=== PATIENT | female | born 1985 | race Caucasian/White ===

== ENCOUNTER 2016-10-28 11:10 | Emergency (ER) | payer OTHER ==
[~2016-10-28] VITALS: Ht 161.3 cm; Wt 56.4 kg
[~2016-10-28 11:10] MED LIST: LANS30CA12 PO; LORA10CA2 PO; ONDA8TAB62 SL; POLY335019 PO; RABE20TA5 PO; TRAM-10 PO; TRIA0.5O TOP
[2016-10-28 11:13] VITALS: TEMP 36.6; Ht 161.3 cm; Wt 56.4 kg
[2016-10-28] MEDS ORDERED: CETI10TA84 PO (11:30)
[2016-10-28] MEDS ORDERED: SODIUM CHLORIDE 0.9% 1000ML 1,000 ML IV ONE (11:45)
[2016-10-28 12:14] LABS: BASO % 0.4 %; BASO ABS # 0.03 K/uL (0-0.2); COMPLETE YES; EOS % 0.8 %; HEMATOCRIT 42.2 % (37-47); IG% 0.3 %; LYMPH % 22.5 %; LYMPH ABS # 1.77 K/uL (1.2-3.4); MEAN CELL VOLUME 85.4 fL (80-100); MEAN CORPUSCULAR HEMOGLOBIN 28.9 pg (25-34); MEAN CORPUSCULAR HGB CONC 33.9 g/dl (32-36); MONO % 7.6 %; NEUT % 68.4 %; PLATELET COUNT 293 K/uL (130-400); RED BLOOD COUNT 4.94 M/uL (4.2-5.4); WHITE BLOOD COUNT 7.88 K/uL (4.8-10.8)
[2016-10-28 12:20] LABS: URINE APPEARANCE CLEAR (CLEAR); URINE BILIRUBIN NEG (NEG); URINE COLOR YELLOW; URINE NITRITE NEG (NEG); URINE PH 6.5 (4.5-7.5); URINE SPECIFIC GRAVITY 1.011 (1.000-1.030); UROBILINOGEN NEG (NEG); ZZUR CULT IF INDIC CLEAN CATCH NO
[2016-10-28 12:24] LABS: MANUAL MICROSCOPIC REQUIRED? NO; REVIEW REQ? NO
[2016-10-28 12:31] LABS: CALCIUM 9.5 mg/dl (8.5-10.1); CREATININE 0.93 mg/dl (0.60-1.20); POTASSIUM 3.6 mmol/L (3.5-5.1)
[2016-10-28 12:34] LABS: ALB/GLOB RATIO 1.2 (0.9-2)
--- NOTE | 2016-10-28 13:36 | DIAGNOSTIC IMAGING REPORT ---
ULTRASOUND OF THE APPENDIX CLINICAL HISTORY: Right lower quadrant abdominal pain. COMPARISON STUDY: Abdominal CT dated 12/16/2014. FINDINGS: Real-time, grayscale, and color flow sonography of the right lower quadrant was performed to assess for acute appendicitis. The appendix was not discretely visualized. No inflammatory changes or free fluid are seen in the right lower quadrant. No lymphadenopathy was seen. IMPRESSION: Nonvisualization of the appendix. Note that this does not exclude acute appendicitis. Electronically signed by: Dillan Laurent M.D. 10/28/2016 1:34 PM Dictated Date/Time: 10/28/2016 1:33 PM
--- NOTE | 2016-10-28 13:42 | DIAGNOSTIC IMAGING REPORT ---
ULTRASOUND OF THE PELVIS CLINICAL HISTORY: Right pelvic pain. Reported history of positive test. COMPARISON STUDY: Pelvic CT dated 12/16/2014. TECHNIQUE: Real-time, grayscale, and color flow sonography of the pelvis is performed both transabdominally and endovaginally. Images are reviewed in the transverse and longitudinal planes. FINDINGS: Uterus: The uterus is normal in size and echotexture, measuring 9.2 x 5.1 x 5.6 cm. In the both in cysts is incidentally noted in the cervix. Gestation: A small gestational sac is identified, with a mean gestational sac diameter of 0.80 cm. This is too small for accurate estimation of dates. A yolk sac is identified. A pole is identified with a crown-rump length of 0.25 cm. This corresponds to an estimated age of 5 weeks 6 days. Cardiac activity is identified on the grayscale images. Ovaries: The ovaries are normal in size and morphology. The right ovary measures 3.7 x 1.8 x 2.8 cm and the left ovary measures 2.0 x 1.0 x 1.2 cm. There are bilateral ovarian follicles. Normal Doppler waveforms are shown within both ovaries. Pelvis: There is trace free fluid in the cul-de-sac. No concerning adnexal lesion is seen. IMPRESSION: 1. There is a single live uterine gestation with an estimated age of 5 weeks 6 days by crown-rump length measurement. 2. The ovaries are normal in appearance. 3. There is trace nonspecific free fluid in the cul-de-sac. Electronically signed by: Dillan Laurent M.D. 10/28/2016 1:40 PM Dictated Date/Time: 10/28/2016 1:35 PM
[2016-10-28 15:08] VITALS: BP 116/70; PULSE 98; O2SAT 97
--- NOTE | 2016-10-28 15:17 | EMERGENCY ROOM VISIT NOTE ---
History First contact with patient: 11:30 Chief Complaint: TEST REQUEST Stated Complaint: POSSIBLE ,PAIN History of Present Illness The patient is a 30 year old female who presents to the Emergency Room with complaints of vague lower abdominal and right sided abdominal pain for the past 2-3 days. The patient describes the pain as a cramping sensation. She is nearly 2 weeks past due on her menses, and states that she felt that her symptoms could be related to her menstrual cycle. The patient is sexually active and states that she had a positive home test today. The patient has not had fever or chills. No chest pain or chest tightness. No upper abdominal tenderness. She is without vaginal drainage, discharge, or bleeding. No difficulty using the bathroom. She rates her current discomfort a 2/10. She has not taken anything [id number] for her symptoms. She does not identify aggravating or alleviating factors. Review of Systems More than 10 systems were reviewed and otherwise negative with the exception of history of present illness. Past Medical/Surgical History Medical Problems: (1) Abdominal pain (2) Anxiety State Nos (3) Asthma, Unspecified (4) Epigastric pain (5) Esophageal Reflux (6) Hiatal hernia (7) Hyperbilirubinemia (8) Jaundice (9) Nausea (10) Pelvic pain (11) Total bilirubin, elevated Social History Problems: (1) IUD (intrauterine device) in place Family History FH: HTN (hypertension) FH: cancer FH: heart disease FH: lung disease No significant family history Social History Smoking Status: Former Smoker Alcohol Use: none Drug Use: none Marital Status: in relationship Housing Status: lives with family Occupation Status: employed Current/Historical Medications Scheduled Cetirizine (Zyrtec), 10 MG PO DAILY Lansoprazole (Prevacid), 30 MG PO DAILY Allergies Coded Allergies: Cephalosporins (Verified Allergy, Intermediate, hives, 10/28/16) "childhood" Penicillins (Verified Allergy, Intermediate, HIVES, 10/28/16) Sulfa Antibiotics (Verified Allergy, Mild, "CHILDHOOD", 10/28/16) Shellfish (Verified Allergy, Unknown, unk, 10/28/16) Physical Exam Vital Signs Date Time Temp Pulse Resp B/P (MAP) Pulse Ox O2 Delivery O2 Flow Rate FiO2 10/28/16 13:34 96 18 140/87 99 Room Air 10/28/16 11:13 36.6 102 15 124/80 100 Room Air Physical Exam VITALS: Vitals are noted on the nurse's note and reviewed by myself. Vital signs stable. GENERAL: Well-developed, well-nourished, white female, who is in no acute distress and resting comfortably. Patient is cooperative with the examination. HEAD: Normocephalic atraumatic. HEART: Regular rate and rhythm without murmurs gallops or rubs. LUNGS: Clear to auscultation bilaterally without wheezes, rales or rhonchi. No retractions or accessory muscle use. ABDOMEN: Positive normal bowel sounds x 4. Soft with mild tenderness in the suprapubic and right lower quadrants. No guarding or rebound tenderness. No CVA tenderness. MUSCULOSKELETAL: No muscle atrophy, erythema, or edema noted. Full range of motion without joint tenderness in all extremities. Medical Decision & Procedures ER Provider Diagnostic Interpretation: ULTRASOUND OF THE APPENDIX CLINICAL HISTORY: Right lower quadrant abdominal pain. COMPARISON STUDY: Abdominal CT dated 12/16/2014. FINDINGS: Real-time, grayscale, and color flow sonography of the right lower quadrant was performed to assess for acute appendicitis. The appendix was not discretely visualized. No inflammatory changes or free fluid are seen in the right lower quadrant. No lymphadenopathy was seen. IMPRESSION: Nonvisualization of the appendix. Note that this does not exclude acute appendicitis. ULTRASOUND OF THE PELVIS CLINICAL HISTORY: Right pelvic pain. Reported history of positive test. COMPARISON STUDY: Pelvic CT dated 12/16/2014. TECHNIQUE: Real-time, grayscale, and color flow sonography of the pelvis is performed both transabdominally and endovaginally. Images are reviewed in the transverse and longitudinal planes. FINDINGS: Uterus: The uterus is normal in size and echotexture, measuring 9.2 x 5.1 x 5.6 cm. In the both in cysts is incidentally noted in the cervix. Gestation: A small gestational sac is identified, with a mean gestational sac diameter of 0.80 cm. This is too small for accurate estimation of dates. A yolk sac is identified. A pole is identified with a crown-rump length of 0.25 cm. This corresponds to an estimated age of 5 weeks 6 days. Cardiac activity is identified on the grayscale images. Ovaries: The ovaries are normal in size and morphology. The right ovary measures 3.7 x 1.8 x 2.8 cm and the left ovary measures 2.0 x 1.0 x 1.2 cm. There are bilateral ovarian follicles. Normal Doppler waveforms are shown within both ovaries. Pelvis: There is trace free fluid in the cul-de-sac. No concerning adnexal lesion is seen. IMPRESSION: 1. There is a single live uterine gestation with an estimated age of 5 weeks 6 days by crown-rump length measurement. 2. The ovaries are normal in appearance. 3. There is trace nonspecific free fluid in the cul-de-sac. Laboratory Results 10/28/16 11:53 Red Blood Count 4.94, Mean Corpuscular Volume 85.4, Mean Corpuscular Hemoglobin 28.9, Mean Corpuscular Hemoglobin Concent 33.9, Mean Platelet Volume 10.0, Neutrophils (%) (Auto) 68.4, Lymphocytes (%) (Auto) 22.5, Monocytes (%) (Auto) 7.6, Eosinophils (%) (Auto) 0.8, Basophils (%) (Auto) 0.4, Neutrophils # (Auto) 5.40, Lymphocytes # (Auto) 1.77, Monocytes # (Auto) 0.60, Eosinophils # (Auto) 0.06, Basophils # (Auto) 0.03 10/28/16 11:53 Test 10/28/16 11:53 10/28/16 12:05 White Blood Count 7.88 K/uL (4.8-10.8) Red Blood Count 4.94 M/uL (4.2-5.4) Hemoglobin 14.3 g/dL (12.0-16.0) Hematocrit 42.2 % (37-47) Mean Corpuscular Volume 85.4 fL (80-100) Mean Corpuscular Hemoglobin 28.9 pg (25-34) Mean Corpuscular Hemoglobin Concent 33.9 g/dl (32-36) Platelet Count 293 K/uL (130-400) Mean Platelet Volume 10.0 fL (7.4-10.4) Neutrophils (%) (Auto) 68.4 % Lymphocytes (%) (Auto) 22.5 % Monocytes (%) (Auto) 7.6 % Eosinophils (%) (Auto) 0.8 % Basophils (%) (Auto) 0.4 % Neutrophils # (Auto) 5.40 K/uL (1.4-6.5) Lymphocytes # (Auto) 1.77 K/uL (1.2-3.4) Monocytes # (Auto) 0.60 K/uL (0.11-0.59) Eosinophils # (Auto) 0.06 K/uL (0-0.5) Basophils # (Auto) 0.03 K/uL (0-0.2) RDW Standard Deviation 41.0 fL (36.4-46.3) RDW Coefficient of Variation 13.1 % (11.5-14.5) Immature Granulocyte % (Auto) 0.3 % Immature Granulocyte # (Auto) 0.02 K/uL (0.00-0.02) Anion Gap 8.0 mmol/L (3-11) Est Creatinine Clear Calc Drug Dose 75.5 ml/min Estimated GFR () 96.3 Estimated GFR (Non- 83.1 BUN/Creatinine Ratio 7.0 (10-20) Calcium Level 9.5 mg/dl (8.5-10.1) Total Bilirubin 1.4 mg/dl (0.2-1) Aspartate Amino Transf (AST/SGOT) 14 U/L (15-37) Alanine Aminotransferase (ALT/SGPT) 19 U/L (12-78) Alkaline Phosphatase 78 U/L (45-117) Total Protein 7.5 gm/dl (6.4-8.2) Albumin 4.1 gm/dl (3.4-5.0) Globulin 3.4 gm/dl (2.5-4.0) Albumin/Globulin Ratio 1.2 (0.9-2) Lipase 125 U/L (73-393) Human Chorionic Gonadotropin, Quant 59224 mIU/mL Urine Color YELLOW Urine Appearance CLEAR (CLEAR) Urine pH 6.5 (4.5-7.5) Urine Specific [place] 1.011 (1.000-1.030) Urine Protein NEG (NEG) Urine Glucose (UA) NEG (NEG) Urine Ketones NEG (NEG) Urine Occult Blood NEG (NEG) Urine Nitrite NEG (NEG) Urine Bilirubin NEG (NEG) Urine Urobilinogen NEG (NEG) Urine Leukocyte Esterase NEG (NEG) Medications Administered Medications (Trade) Dose Ordered Sig/Janet Route Start Time Stop Time Status Last Admin Dose Admin Sodium Chloride 1,000 ml @ 999 mls/hr Q1H1M ONCE IV 10/28/16 11:45 10/28/16 12:45 DC 10/28/16 11:45 999 MLS/HR ED Course Physical exam and history were performed. Nursing notes and EMR were reviewed. Patient appears to have lower abdominal pain and cramping for the past few days. She did have a positive test at home. The patient does have some tenderness suprapubically and in the right lower quadrant. IV access was established and labs were obtained. She was hydrated with normal saline. Ultrasound of the pelvis and appendix were ordered. The patient's blood work is as above and was reviewed. She does not have a significantly elevated white blood cell count, gross anemia, bandemia, or significant electrolyte imbalance. Lipase and transaminases are nondiagnostic. Urine is without obvious signs of infection. The patient's ultrasound of the appendix was with nonvisualization of the appendix. Pelvic ultrasound does reveal an intrauterine with heart rate consistent with viable at this point. Her hCG quantitative also places her in a 5-6 week gestational . I discussed the case with my attending physician, and overall we feel the patient is stable for discharge home. Her symptoms are likely related to the and not necessarily an alternative acute abdominal process. Her white count is normal and she is afebrile. With nonvisualization of the appendix I do not feel this is the cause of her symptoms currently. The patient will need close follow-up. She is evidently had 5 previous pregnancies with 2 spontaneous miscarriages. She is likely high risk in this , and needs to follow with her PSYCHOLOGICAL ASSISTANT on a short interval for follow-up. The patient is to monitor her symptoms, and was asked to return to the ER if they worsen. If that were to occur MRI would be considered. Of note the patient did defer a pelvic exam today, which seems reasonable as she is not having vaginal irritation or bleeding. The patient rated her discomfort a 2/10 at the time of departure. The chart was completed utilizing [employer] Voice Recognition Software. Grammatical errors, random word insertions, pronoun errors, and incomplete sentences are an occasional consequence of this system due to software limitations, ambient noise, and hardware issues. Any formal questions or concerns about the content, text, or information contained within the body of this dictation should be directly addressed to the provider for clarification. . Medical Decision Differential diagnosis: Etiologies such as , appendicitis, colitis, UTI, ectopic , dysfunction uterine bleeding, bleeding dyscrasia, trauma, infection, as well as others were entertained. Impression Primary Impression: Abdominal pain during Departure Information Dispostion Home / Self-Care Condition GOOD Forms HOME CARE DOCUMENTATION FORM, IMPORTANT VISIT INFORMATION Patient Instructions [facility] Additional Instructions You were seen and evaluated today on an emergency basis only. This is not a substitute for, or an effort to provide, complete comprehensive medical care. It is not possible to recognize and treat all injuries or illnesses in a single emergency department visit. For this reason it is recommended that you followup with your PSYCHOLOGICAL ASSISTANT by telephone tomorrow morning to arrange appropriate follow-up. Take Tylenol 1000 mg every 6-8 hours as needed for pain control. You are welcome to return to the emergency department anytime with new, worsening, or concerning symptoms. Problem Qualifiers Primary Impression: Abdominal pain during Trimester: first trimester Qualified Codes: O26.891 - Other specified related conditions, first trimester; R10.9 - Unspecified abdominal pain
== END 2016-10-28 15:10 | disposition home or self-care (01) ==
LOC: C.EDB 11:11 → C.EDC 15:10
DX: O26.891 Other specified pregnancy related conditions, first trimester (principal); Z32.01 Encounter for pregnancy test, result positive; F41.9 Anxiety disorder, unspecified; J45.909 Unspecified asthma, uncomplicated; K21.9 Gastro-esophageal reflux disease without esophagitis; D58.0 Hereditary spherocytosis; Z82.49 Family history of ischemic heart disease and other diseases of the circulatory system; Z87.891 Personal history of nicotine dependence